=== PATIENT | male | born 1975 | race Caucasian/White ===

== ENCOUNTER 2024-09-09 11:24 | Emergency (ER) | payer SELFPAY ==
[2024-09-09 11:36] VITALS: BP 159/111; PULSE 90; RESP 18; TEMP 36.9; O2SAT 97; BMI 34.6
--- NOTE | 2024-09-09 13:04 | ED.GENADULT ---
HPI - General Adult General Date Seen: 09/09/24 Chief complaint: Dizziness/Vertigo Stated complaint: high blood pressure- dizzy Time Seen by Provider: 09/09/24 12:18 Source: patient Mode of arrival: ambulatory Limitations: no limitations History of Present Illness HPI narrative: Patient is a 49-year-old male presenting to the emergency department for concerns of hypertension an episode of unsteadiness. States he used to be on blood pressure medication but his blood pressure go too low so took him off his hypertensive medication. Has not seen his provider in 2 years he states. Was at the dentist last week and was told he was hypertensive. The noticed today was at work he suddenly felt slightly dizzy and off balance. Did not notice the room spinning or felt like he was going to pass out just states he felt off balance. Also felt like he had some mild shortness of breath. Was not having any chest pain. States his symptoms have since resolved other than some mild headache. Denies fevers, chills, abdominal pain, nausea, vomiting, weakness, numbness. Not aware of any sick contacts. Denies having symptoms like this before. Due other concerns noted. Related Data Home Medications ?Medication ?Instructions ?Recorded ?Confirmed No Known Home Medications 09/09/24 09/09/24 Allergies Allergy/AdvReac Type Severity Reaction Status Date / Time No Known Drug Allergies Allergy Verified 09/09/24 11:31 Review of Systems Status of ROS: Reports: 10 or more systems reviewed and unremarkable except as noted in History and below Exam Narrative: Exam Narrative: Const: Well-nourished, Well-developed, in no distress Eyes: PERRL, no conjunctival injection, and symmetrical lids HENT: Atraumatic external nose and ears. Moist mucous membranes. Neck: Symmetric, trachea midline, No thyromegaly. CVS: RRR, No murmurs or gallops. Peripheral pulses 2+ and equal in all extremities RESP: Unlabored respiratory effort. Clear to auscultation bilaterally. GI: Nontender/Nondistended, No rebound or guarding. MSK:Extremities w/o deformity, Normal Active ROM Skin: Warm, Dry. No rashes or lesions. Neuro: Normal Muscle tone, No focal neurological deficits. Psych: Awake, Alert, & Oriented x3. Appropriate mood and affect. Const: Vital Signs, click to edit/add: Vital Signs - 24 hr 09/09/24 11:36 Temperature 98.4 F Pulse Rate [Pulse Oximeter] 90 Respiratory Rate 18 Blood Pressure [Ri ght Upper Arm] 159/111 H Pulse Oximetry 97 Oxygen Delivery Me thod Room Air Course Vital Signs Vital signs: Initial Vital Signs Temperature 98.4 F 09/09/24 11:36 Temperature Source Temporal Artery Scan 09/09/24 11:36 Pulse Rate 90 09/09/24 11:36 Pulse Rhythm Regular 09/09/24 11:36 Respiratory Rate 18 09/09/24 11:36 Blood Pressure 159/111 H 09/09/24 11:36 Blood Pressure Mean 127 H 09/09/24 11:36 Blood Pressure Position Sitting 09/09/24 11:36 Pulse Oximetry 97 09/09/24 11:36 Oxygen Delivery Method Room Air 09/09/24 11:36 Vital Signs Temperature 98.4 F 09/09/24 11:36 Pulse Rate 90 09/09/24 11:36 Respiratory Rate 18 09/09/24 11:36 Blood Pressure 159/111 H 09/09/24 11:36 Pulse Oximetry 97 09/09/24 11:36 Oxygen Delivery Method Room Air 09/09/24 11:36 Temperature 98.4 F 09/09/24 11:36 Pulse Rate 90 09/09/24 11:36 Respiratory Rate 18 09/09/24 11:36 Blood Pressure 159/111 H 09/09/24 11:36 Pulse Oximetry 97 09/09/24 11:36 Oxygen Delivery Method Room Air 09/09/24 11:36 Medical Decision Making MDM Narrative Medical decision making narrative: Patient is a 49-year-old male presenting to the emergency department for episode of shortness of breath and unsteadiness that has since resolved. He is hypertensive but the set meet criteria for hypertensive emergency at this time. Since she did this shortness of breath shows that since resolved I will do an EKG and troponin to rule out any kind of ACS. Will also check a COVID/flu/RSV along with a CBC and BMP to rule out any kidney disease. I do not believe head imaging is necessary is again his dizziness has resolved and his headache is relatively mild. Under of any concern for pneumonia or pneumothorax at this time. No concern for PE. Patient's lab work all returned showing no concerning abnormalities. EKG shows no concerning findings. Patient continues to be asymptomatic in the emergency department. At this time I do believe he is safe to discharge Lab Data Labs: Lab Results 09/09/24 09/09/24 Range/Units 13:13 13:16 WBC 6.77 (4.50-11.00) K/uL RBC 5.06 (4.30-5.90) m/uL Hgb 15.1 (13.5-17.5) gm/dL Hct 44.9 (37.0-53.0) % MCV 89 (80-100) fL MCH 30 (26-34) pg MCHC 34 (32-36) gm/dL RDW Coeff of Lola 12.2 (11.5-15.5) % Plt Count 231 (140-440) K/uL Neut % (Auto) 53.3 (42.0-72.0) % Lymph % (Auto) 36.5 (20-44) % [place] % (Auto) 8.3 (0.0-11.0) % Eos % (Auto) 1.2 (0.0-7.0) % Baso % (Auto) 0.6 (0.0-3.0) % Neut # (Auto) 3.61 (1.7-7.0) K/uL Lymph # (Auto) 2.47 (0.90-2.90) K/uL [place] # (Auto) 0.60 (0.00-0.90) K/UL Eos # (Auto) 0.08 (0.00-0.50) K/uL Baso # (Auto) 0.04 (0.00-0.30) K/uL Abs Immat Gran (auto) 0.01 (0.00-0.30) K/uL Imm/Tot Granulo (auto) 0.1 % Sodium 136 (135-149) mmol/L Potassium 4.5 (3.6-5.1) mmol/L Chloride 102 (96-114) mmol/L Carbon Dioxide 25 (20-32) mmol/L Anion Gap 9 (7-15) mEq/L BUN 17 (5-24) mg/dL Creatinine 0.8 (0.5-1.5) mg/dL Estimated Creat Clear 114.15 Estimated GFR 110 ml/min Glucose 128 H (60-115) mg/dL Calcium 9.5 (8.4-10.6) mg/dL SARS-CoV-2 (PCR) Negative SARS-CoV-2 (Negative) Influenza Type A (PCR) Negative PCR FLU A (Negative) Influenza Type B (PCR) Negative PCR FLU B (Negative) RSV (PCR) Negative PCR RSV (Negative) POC Troponin I 0.00 L (0.01-0.04) ng/ml ECG Data Attestation: I personally reviewed and interpreted this ECG as follows: Prior ECG tracings: not available for review Interpretation: Normal sinus rhythm with a rate 71 beats per minute, normal intervals, normal axis, no ST or T-wave abnormalities. Discharge Plan Discharge Clinical Impression: Hypertension Qualifiers: Hypertension type: unspecified Qualified Code(s): I10 - Essential (primary) hypertension Patient Disposition: Home, Self-Care Condition: Stable Instructions: Hypertension (ED) Additional Instructions: Follow-up with your primary care provider about your blood pressure. Return to emergency department for new or worsening symptoms Prescriptions: No Action No Known Home Medications Follow Up/Referrals: Provider,Not a Local [Primary Care Provider] - Stand Alone Forms: [employer] Info Instructions
[2024-09-09 13:29] LABS: Basophils Absolute Auto 0.04 K/uL (0.00-0.30); Basophils Percent Auto 0.6 % (0.0-3.0); Eosinophils Absolute Auto 0.08 K/uL (0.00-0.50); Eosinophils Percent Auto 1.2 % (0.0-7.0); Hematocrit 44.9 % (37.0-53.0); Hemoglobin* 15.1 gm/dL (13.5-17.5); Immature Granulocytes Abs Auto 0.01 K/uL (0.00-0.30); Immature Granulocytes Pct Auto 0.1 %; Lymphocytes Absolute Auto 2.47 K/uL (0.90-2.90); Lymphocytes Percent Auto 36.5 % (20-44); Mean Corpuscular HGB Conc 34 gm/dL (32-36); Mean Corpuscular Hemoglobin 30 pg (26-34); Mean Corpuscular Volume 89 fL (80-100); Monocytes Percent Auto 8.3 % (0.0-11.0); Neutrophils Absolute Auto 3.61 K/uL (1.7-7.0); Neutrophils Percent Auto 53.3 % (42.0-72.0); Platelet Count* 231 K/uL (140-440); RDW Coefficient of Variation % 12.2 % (11.5-15.5); Red Blood Count 5.06 m/uL (4.30-5.90); White Blood Count* 6.77 K/uL (4.50-11.00)
[2024-09-09 13:32] LABS: Slide Review Reflex No
[2024-09-09 13:42] LABS: Chloride* 102 mmol/L (96-114); Potassium* 4.5 mmol/L (3.6-5.1); Sodium* 136 mmol/L (135-149)
[2024-09-09 13:45] LABS: Anion Gap 9 mEq/L (7-15); Blood Urea Nitrogen* 17 mg/dL (5-24); Calcium* 9.5 mg/dL (8.4-10.6); Carbon Dioxide* 25 mmol/L (20-32); Creatinine* 0.8 mg/dL (0.5-1.5); Est. Creatinine Clearance* 114.15; Estimated Glomerular Filt Rate 110 ml/min; Glucose* 128 mg/dL (60-115)
--- OUTSIDE RECORDS SUMMARY | 2024-09-09 14:01 | XMS_ITS | Clinical Summary ---
Author Organization [facility] Address [address] [place] [address] Care Team Providers Care Consulting Database Administrator Name Role Phone Angeline Borrego M.D. Primary Care Provider +1- [phone] Source Comments Patient records contain information from all sites at [facility]. For routine questions regarding patient records, call [phone] during business hours, M-F 8:00 AM - 5:00 PM Central Time. Record requests for emergency care only can be directed to [phone] at any time.[facility] Allergies No known active allergies Medications * This document contains information received from the source organization and may not represent a complete record from that organization. tadalafiL (Cialis) 10 mg tablet Take 1 tablet (10 mg total) by mouth daily as needed for erectile dysfunction. 12 tablet 3 4 Active omeprazole (PriLOSEC) [address] capsule TAKE 1 CAPSULE(20 MG) BY MOUTH DAILY 90 capsule 5 Active omeprazole (PriLOSEC) [address] capsule Take 1 capsule (20 mg total) by mouth daily. 30 capsule 2 4 025 Discontinued Active Problems Problem Noted Date Diagnosed Date Other Obesity Due To Excess Calories 09/13/2021 Sprain Lumbar Initial 08/24/2013 Overview (09/19/2023): Sprain of lumbar region L-S and LB mm strain @ [employer] Encounters Date Type Department Care Team Description 08/31/2024 Refill Department of Family Medicine, [facility], in [address] [phone] Kaley Garncia, CNC TECHNICIAN, C.N.P. Med Refill 08/08/2024 Results Follow-Up Department of Family Medicine, [facility], in [address] [phone] Angeline Borrego M.D. Cologuard - Sent Out Lab from Last 3 Months Immunizations Immunization Administration Dates Next Due HepB Adult 02/18/2015 HepB Adult (HEPLISAV-B) 09/01/2023 HepB, Unspecified 11/20/2018 MMR 11/20/2018,02/18/2015 SARS-COV-2 (COVID-19) - PFIZ ER (Discontinued)(12 years or older) 11/18/2020,10/28/2020 Tdap 11/20/2018,02/18/2015 influenza vaccine quad (FLUZ ONE/FLUARIX) (6 months and older)(PF) 02/18/2015 Family History Medical History Relation Name Comments Diabetes mellitus type II Brother Diabetes type II Sister Relation Name Status Comments Brother Sister Social History Tobacco Use Types Packs/Day Years Used Date Smoking Tobacco: Former Smokeless Tobacco: Never Tobacco Cessation:Counseling Given: Not Answered PHQ-2 Answer Date Recorded PHQ-2 Score 0 09/01/2023 Nutrition Answer Date Recorded Nutrition: EVOO Fat Source Unknown 07/17 Nutrition: Servings of Fruits/Vegetables per Day Not on file 07/17/2020 Dental Answer Date Recorded Dental: Regular Dentist Unknown 07/17/19 21 Sex and Gender Information Value Date Recorded Sex Assigned at Not on file Legal Sex 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 Gender Identity Not on file Sexual Orientation Not on file Last Filed Vital Signs Vital Sign Reading Time Taken Comments Blood Pressure 123/86 09/01/2023 9:03 AM CDT Pulse 78 09/01/2023 9:03 AM CDT Temperature 36.7 C (98 F) 09/01/2023 9:03 AM CDT Respiratory Rate 18 12/05/2013 5:03 PM CDT Oxygen Saturation 98% 09/01/2023 9:03 AM CDT Inhaled Oxygen Concentration - - Weight 101 kg (223 lb 1.7 oz) 09/01/2023 9:03 AM CDT Height 168 cm (5' 6.14) 07/16/2020 8:02 AM GENERAL LITHOGRAPHIC WORKER Body Mass Index 35.86 07/16/2020 8:02 AM GENERAL LITHOGRAPHIC WORKER Plan of Treatment Upcoming Encounters Date Type Department Care Team (Latest Contact Info) Description 11/14/2024 1:40 PM CDT Comprehensive Visit Department of Family Medicine, [facility], in [address] [phone] Angeline Borrego M.D. [address] [place] [phone] Discharge Disposition: Home or Self Care Health Maintenance Due Date Last Done Comments CT Colonography 1977 Colonoscopy 1977 FIT 1977 COVID-19 Vaccine ( season) 2024 09/13/2021, 11/18/2020, 10/28/2020 Influenza Vaccine (#1) 2024 02/18/2015 Depression Screening (Annual PHQ-2) 05/29/2024 Fasting Glucose for Diabetes Screening 08/31/2026 09/01/2023, 09/13/2021, 07/16/2020, Additional history exists Cologuard 07/28/2027 07/27/2024 Colorectal Cancer Screening 07/28/2027 Lipid (Cholesterol) Screening 08/31/2028 09/01/2023, 09/17/2021, 09/13/2021, Additional history exists DTaP,Tdap,and Td Vaccines (3 - Td or Tdap) 11/20/2028 11/20/2018, 02/18/2015 HIV Screening Completed 02/15/2022 Hepatitis C Screening Completed 02/15/2022 Hepatitis B Vaccines Completed 09/01/2023, 11/20/2018, 02/18/2015 IPV Vaccines Aged Out No longer eligi ble based on patient's age to complete this topic Pneumococcal vaccine (0-49 years) Aged Out No longer eligible based on patient's age to complete this topic Procedures Procedure Name Priority Date/Time Associated Diagnosis Comments COLOGUARD Routine 07/27/2024 4:30 PM GENERAL LITHOGRAPHIC WORKER Screening Cancer Colon COMPREHENSIVE METABOLIC PANEL, S/P Routine 09/01/2023 10:48 AM CDT Well Adult Examination Normal LIPID PANEL, S Routine 09/01/2023 10:48 AM CDT Screening Lipid HCV AB SCRN W/REFLEX TO HCV PCR, S Routine 02/15/2022 9:53 AM CDT Balanitis Xerotica Obliterans Lesion Skin Penile HIV-1/-2 AG AND AB SCREEN, PLASMA Routine 02/15/2022 9:53 AM CDT Balanitis Xerotica Obliterans Lesion Skin Penile from Last 3 Months or Most Recently Relevant to Health Maintenance Results * Cologuard - Sent Out Lab (07/27/2024 4:30 PM GENERAL LITHOGRAPHIC WORKER) Result Negative Negative 08/08/2024 4:38 AM CDT EX[facility] Comment: NEGATIVE TEST RESULT. A negative Cologuard result indicates a low likelihood that a colorectal cancer (CRC) or advanced adenoma (adenomatous polyps with more advanced pre-malignant features) is present. The chance that a person with a negative Cologuard test has a colorectal cancer is less than 1 in 1500 (negative predictive value >99.9%) or has an advanced adenoma is less than 5.3% (negative predictive value 94.7%). These data are based on a prospective cross-sectional study of 10,000 individuals at average risk for colorectal cancer who were screened with both Cologuard and colonoscopy. (Holli Barahona al, N Engl J Med 2014;370(14):2641-5467) The normal value (reference range) for this assay is negative. COLOGUARD RE-SCREENING RECOMMENDATION: Periodic colorectal cancer screening is an important part of preventive healthcare for asymptomatic individuals at average risk for colorectal cancer. Following a negative Cologuard result, the [employer] [place] [employer] Society and U.S. Multi-Society Task Force screening guidelines recommend a Cologuard re-screening interval of 3 years. References: [employer] Guideline for Colorectal Cancer Screening: https://www.cancer.org/cancer/uzwnr-rnxuxw-sdeaya/detection- diagnosis-staging/acs-recommendations.html.; Darwin DK, Suman CR, Hero McconnellK, Colorectal Cancer Screening: Recommendations for Physicians and Patients from the U.S. Multi-Society Task Force on Colorectal Cancer Screening , Am J Gastroenterology 2017; 112:3556-4705. TEST DESCRIPTION: Composite algorithmic analysis of stool DNA-biomarkers with hemoglobin immunoassay. Quantitative values of individual biomarkers are not reportable and are not associated with individual biomarker result reference ranges. Cologuard is intended for colorectal cancer screening of adults of either sex, 45 years or older, who are at average-risk for colorectal cancer (CRC). Cologuard has been approved for use by the U.S. FDA. The performance of Cologuard was established in a cross sectional study of average-risk adults aged 50-84. Cologuard performance in patients ages 45 to 49 years was estimated by sub-group analysis of near-age groups. Colonoscopies performed for a positive result may find as the most clinically significant lesion: colorectal cancer [4.0%], advanced adenoma (including sessile serrated polyps greater than or equal to 1cm diameter) [20%] or non- advanced adenoma [31%]; or no colorectal neoplasia [45%]. These estimates are derived from a prospective cross-sectional screening study of 10,000 individuals at average risk for colorectal cancer who were screened with both Cologuard and colonoscopy. (Holli Barahona al, N Engl J Med 2014;370(14):1671-3706.) Cologuard may produce a false negative or false positive result (no colorectal cancer or precancerous polyp present at colonoscopy follow up). A negative Cologuard test result does not guarantee the absence of CRC or advanced adenoma (pre-cancer). The current Cologuard screening interval is every 3 years. ([employer] and U.S. Multi-Society Task Force). Cologuard performance data in a 10,000 patient pivotal study using colonoscopy as the reference method can be accessed at the following location: www.Sedicii.KeepTrax/results. Additional description of the Cologuard test process, warnings and precautions can be found at www.[employer].KeepTrax. Stool (Stool) 07/27/2024 4:3 0 PM GENERAL LITHOGRAPHIC WORKER 07/30/2024 9:48 AM GENERAL LITHOGRAPHIC WORKER Angeline Borrego M.D. LAB BODY FLUIDS AND STOOLS ORDERABLES Final Result [employer] [employer] [address] [place] [address] [facility] [address], [address] [place] [address] * (ABNORMAL) Lipid Panel (09/01/2023 10:48 AM CDT) Triglycerides 219(H) mg/dL 09/01/2023 11:13 AM CDT CNFL Comment: ----REFERENCE VALUE---- Normal: <150 mg/dL Borderline High: 150-199 mg/dL High: 200-499 mg/dL Very High: > or =500 mg/dL Cholesterol, Total 148 mg/dL 2023 11:13 AM CDT CNFL Comment: ----REFERENCE VALUE---- Desirable: < 200 mg/dL Borderline High: 200 - 239 mg/dL High: > or = 240 mg/dL Cholesterol, LDL, Calculated 76 mg/dL 09/01/2023 11:13 AM CDT CNFL Comment: ----REFERENCE VALUE---- Desirable: <100 mg/dL Above Desirable: 100-129 mg/dL Borderline High: 130-159 mg/dL High: 160-189 mg/dL Very High: >=190 mg/dL ----ADDITIONAL INFORMATION---- LDL cholesterol calculated using the Ennis/NIH equation. Cholesterol, HDL 36(L) >=40 mg/dL 09/01/19 11:13 AM CDT CNFL Cholesterol, Non-HDL, Calculated 112 mg/dL 09/01/2023 11:13 AM CDT CN[facility] Comment: ----REFERENCE VALUE---- Desirable: <130 mg/dL Above Desirable: 130-159 mg/dL Borderline High: 160-189 mg/dL High: 190-219 mg/dL Very High: > or =220 mg/dL Fasting (8 HR or more) Yes 09/01/2023 10:48 AM CDT CNFL Blood (Blood, Venous) 09/01/2023 10:48 AM CDT 09/01/2023 10:48 AM CDT us Kaley Garnica APRN, C.N.P. LAB BLOOD ADD-ON Vashti l Result [facility] [address] [place] [id number], [facility] CNFL [facility] in [place] [id number] * (ABNORMAL) Comprehensive Metabolic Panel (09/01/2023 10:48 AM CDT) Potassium, P 4.4 3.6 - 5.2 mmol/L 09/01/2023 11:13 AM CDT CNFL Sodium, P 138 135 - 145 mmol/L 09/01/2023 11:13 AM CDT CNFL Chloride, P 104 98 - 107 mmol/L 09/01/2023 11:13 AM CDT CNFL Bicarbonate, P 26 22 - 29 mmol/L 09/01/2023 11:13 AM CDT CNFL Anion Gap, P 8 7 - 15 09/01/2023 11:13 AM CDT CNFL BUN (Blood Urea Nitrogen), P 18 8 - 24 mg/dL 09/01/2023 11:13 AM CDT CNFL Creatinine 0.87 0.74 - 1.35 mg/dL 09/01/2023 11:13 AM CDT CNFL Estimated GFR (eGFR) >90 >=60 mL/min/BS A 09/01/2023 11:13 AM CDT CNFL Comment: Estimated GFR calculated using the 2020 CKD_EPI creatinine equation. Calcium, Total, P 9.3 8.6 - 10.0 mg/dL 09/01/2023 11:13 AM CDT CNFL Glucose, P 88 70 - 140 mg/dL 09/01/2023 11:13 AM CDT CNFL Protein, Total, P 7.1 6.3 - 7.9 g/dL 09/01/2023 11:13 AM CDT CNFL Albumin, P 4.1 3.5 - 5.0 g/dL 09/01/2023 11:13 AM CDT CNFL Aspartate Aminotransferase (AST), P 36 8 - 48 U/L 09/01/2023 11:13 AM CDT CNFL Alkaline Phosphatase, P 140(H) 40 - 129 U/L 09/01/2023 11:13 AM CDT CNFL Alanine Aminotransferase (ALT), P 76(H) 7 - 55 U/L 09/01/2023 11:13 AM CDT CNFL Bilirubin, Total, P 0.4 0.0 - 1.2 mg/dL 09/01/2023 11:13 AM CDT CNFL Blood (Blood, Venous) 09/01/2023 10:48 AM CDT 09/01/2023 10:48 AM CDT us Kaley Garnica APRN, C.N.P. LAB BLOOD ADD-ON Vashti l Result Performing Organization Address City/State/[facility] Co de Phone Number [facility] [address] [place] [id number], [facility] CNFL [facility] in [address] [address] * HIV-1/-2 Ag and Ab Screen, Plasma (02/15/2022 9:53 AM CDT) HIV Ag/Ab Screen, P Negative Negative 02/16/2022 9:58 AM CDT E[facility] Comment: Negative result does not rule out HIV infection. If exposure to HIV infection occurred <14 days ago, contact the laboratory to request addition of HIV-1 RNA detection / quantification test. HIV-1 p24 Ag Screen, P Negative Negative 02/16/2022 9:58 AM CDT ECLR Comment: Negative result does not rule out HIV infection. If exposure to HIV infection occurred <14 days ago, contact the laboratory to request addition of HIV-1 RNA detection / quantification test. HIV-1 Ab Screen, P Negative Negative 2021 9:58 AM CDT ECLR Comment: Negative result does not rule out HIV infection. If exposure to HIV infection occurred <14 days ago, contact the laboratory to request addition of HIV-1 RNA detection / quantification test. HIV-2 Ab Screen, P Negative Negative 2021 9:58 AM CDT ECLR Comment: Negative result does not rule out HIV infection. If exposure to HIV infection occurred <14 days ago, contact the laboratory to request addition of HIV-1 RNA detection / quantification test. Blood (Blood, Venous) 02/15/2022 9:53 AM CDT 02/15/2022 2:45 PM CDT Bijal Paula APRN, C.N.P. , D.N.P. LAB MICROBIOLOGY - BLOOD ORDERABLES Final Result [facility] [address] [place] [address], [facility] ECLR [facility] [place] [address] * HCV Ab Scrn w/Reflex to HCV PCR, Serum (02/15/2022 9:53 AM CDT) HCV Ab Screen, S Negative Negative 02/16/20 4:34 PM CDT ECLR Comment: Biotin has been identified by the control systems developer as a potential interfering substance. Higher concentrations of biotin may be found in multivitamins, hair/nail supplements, and workout supplements. If the result does not match clinical observations, repeat testing after patient refrains from the use of supplements for at least 12 hours. Blood (Blood, Venous) 02/15/2022 9:53 AM CDT 02/15/2022 2:46 PM CDT Narrative [facility] - 02/15/2022 4:34 PM CDT Specimen Information: Specimen ID: [id number] Specimen Type: Blood Specimen Collection Start Date: 02/15/2022 9:53 AM Specimen Received Date: 02/15/2022 2:46 PM Specimen ID: [id number] Specimen Type: Blood Specimen Collection Start Date: 02/15/2022 9:53 AM Specimen Received Date: 02/15/2022 2:46 PM Bijal Paula APRN, C.N.P. , D.N.P. LAB MICROBIOLOGY - BLOOD ORDERABLES Final Result [facility] [address] [place] [address], [place] ECLR [facility] in [place] [address] [place] [address] from Last 3 Months or Most Recently Relevant to Health Maintenance Insurance [facility] Care Teams Consulting Database Administrator Relationship Specialty Start Date End Date Angeline Borrego M.D. [address] [place] [phone] PCP - General 04/13/22
--- OUTSIDE RECORDS SUMMARY | 2024-09-09 14:01 | XMS_ITS | Encounter Summary ---
Author Organization [facility] Address [address] [place] [address] Care Team Providers Care Environmental Director Name Role Phone Angeline Borrego M.D. Primary Care Provider +1- [phone] Reason for Visit * Reason Comments Med Refill Encounter Details Date Type Department Care Team (Late Contact Info) Description 08/31/2024 Refill Department of Family Medicine, [facility], in [address] [phone] Kaley Garnica, LONE LEAD LINEMAN, C.N.P. 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 [address] [place] [phone] Discharge Disposition: Home or Self Care documented as of this encounter Visit Diagnoses Not on filedocumented in this encounter Care Teams Environmental Director Relationship Specialty Start Date End Date Angeline Borrego M.D. [address] [place] [phone] PCP - General 04/13/22 documented as of this encounter
--- OUTSIDE RECORDS SUMMARY | 2024-09-09 14:01 | XMS_ITS | Clinical Summary ---
Author Organization [place] Address [address] [facility] [place] [address] Care Team Providers Care Otolaryngology Surgeon Name Role Phone No Ref-Primary, Physician Primary Care Provider No Ref-Primary, Physician Unavailable [facility] [place] Unavail able Allergies Active Allergy Reactions Criticality Noted Date Comments No Known Allergies 12/07/2001 Medications lisinopril (ZESTRIL) 5 MG tabletIndicatio ns:Elevated blood pressure reading TAKE 1 TABLET(5 MG) BY MOUTH DAILY 90 tablet Active Additional Information Patient not taking.Reported on 12/02/2022 Active Problems Problem Noted Date Diagnosed Date Class 1 obesity due to exces s calories without serious comorbidity with body mass index (BMI) of 33.0 to 33.9 in adult 09/13/2021 ACP (advance care planning) 09/13/2021 Other atopic dermatitis 08/21/2017 Other male erectile dysfunction 08/21/2017 Sprain of lumbar region 12/06/2001 Overview (12/07/2001): L-S and LB mm strain @ [facility] Immunizations Name Administration Dates Next Due COVID-19 Monovalent 12+ (Pfizer 2021) 09/13/2021 HepB, Unspecified 11/20/2018 Hepatitis B, Adult (Energix- B/Recombivax HB) 02/18/2015,02/18/2015 Influenza Vaccine >6 months,quad, PF 02/18/2015, 02/18/2015 MMR (MMRII) 11/20/2018,02/18/2015,02/18/2015 TDAP (Adacel,Boostrix) 11/20/2018,02/18/2015 TDAP Vaccine (Adacel) 02/18/2015 Family History Medical History Relation Comments Diabetes Brother Prostate Cancer Father Colon Cancer No family hx of Relation Status Comments Brother Alive Father Alive Mother Alive Social History Tobacco Use Types Packs/Day Years Used Date Smoking Tobacco: Former Cigarettes Q uit: 08/25/2021 Smokeless Tobacco: Never Comments:occasionally Alcohol Use Standard Drinks/Week Comments Yes 0 (1 standard drink = 0.6 oz pur e alcohol) one drink per week Social Connection and Isolat ion Panel [NHANES] Answer Date Recorded In a typical week, how many times do you talk on the phone with family, friends, or neighbors? Twice a week 09/13/2021 How often do you get togethe r with friends or relatives? More than three times a week 09/13/2021 How often do you attend chur or jehovah's witness services? More than 4 times per year 09/13/2021 Do you belong to any clubs o r organizations such as shinto groups, unions, fraternal or athletic groups, or school groups? Yes 09/13/2021 Attends Club or Organization Meetings Not on cristina e 09/13/2021 Are you , , di vorced, , never , or living with a partner? 09/13/2021 AUDIT-C Answer Date Recorded Q1: How often do you have a drink containing alc ohol? Monthly or less 09/13/2021 Q2: How many drinks containi ng alcohol do you have on a typical day when you are drinking? 1 or 2 09/13/2021 Q3: How often do you have si x or more drinks on one occasion? Less than monthly 09/13/2021 Overall Financial Resource Strain (CARDIA) Answe r Date Recorded How hard is it for you to pa y for the very basics like food, housing, medical care, and heating? Not hard at all 09/13/2021 PHQ-2 Answer Date Recorded PHQ-2 Score 0 12/02/2022 [facility] - Occupational Stress Questionnaire Answer Date Recorded Do you feel stress - tense, restless, nervous, or anxious, or unable to sleep at night because your mind is troubled all the time - these days? Only a little 09/13/2021 Exercise Vital Sign Answer Date Recorde d On average, how many days pe r week do you engage in moderate to strenuous exercise (like a brisk walk)? 5 days 09/13/2021 On average, how many minutes do you engage in exercise at this level? 40 min 09/13/2021 Hunger Vital Sign Answer Date Recorded Within the past 12 months, y ou worried that your food would run out before you got the money to buy more. Never true Within the past 12 months, t he food you bought just didn't last and you didn't have money to get more. Patient declined PRAPARE - Transportation Answer Date Re corded In the past 12 months, has l ack of transportation kept you from medical appointments or from getting medications? Patient declined 09/13/2021 In the past 12 months, has l ack of transportation kept you from meetings, work, or from getting things needed for daily living? No 09/13/2021 Housing Stability Vital Sign Answer Power e Recorded In the last 12 months, was t here a time when you were not able to pay the mortgage or rent on time? No 09/13/2021 In the last 12 months, how many places have you lived? 1 09/13/2021 In the last 12 months, was t here a time when you did not have a steady place to sleep or slept in a residential (including now)? 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 Gender Identity Not on file Sexual Orientation Not on file Last Filed Vital Signs Vital Sign Reading Time Taken Comments Blood Pressure 133/84 12/02/2022 1:16 PM CDT Pulse 80 12/02/2022 1:16 PM CDT Temperature 37 C (98.6 F) 12/02/2022 1:16 PM CDT Respiratory Rate 19 12/02/2022 1:16 PM CDT Oxygen Saturation 95% 12/02/2022 1:16 PM CDT Inhaled Oxygen Concentration - - Weight 99.8 kg (220 lb) 12/02/2022 1:16 PM CDT Height 172.7 cm (5' 8) 12/02/2022 1:16 PM CDT Body Mass Index 33.45 12/02/2022 1:16 PM CDT Plan of Treatment Health Maintenance Due Date Last Done Comments ADVANCE CARE PLANNING 1977 CT COLONOGRAPHY 1977 FIT 1977 FLEX SIG 1977 sDNA (Cologuard) 1977 COLONOSCOPY 08/18/1987 COLORECTAL CANCER SCREENING 08/18/1987 HEPATITIS B IMMUNIZATION (3 of 3 - 19+ 3-dose series) 01/15/2019 11/20/2018, 02/18/2015, 02/18/2015 ANNUAL REVIEW OF HM ORDERS 09/13/2022 09/13/2021, YEARLY PREVENTIVE VISIT 09/13/2022 09/14/19, 06/28/2019, 06/28/2019 COVID-19 Vaccine ( season) 2024 09/13/2021 INFLUENZA VACCINE (#1) 2024 , 02/18/2015, 02/18/2015 PHQ-2 (once per calendar year) 2024 12/02/2022, 09/13/2021, 06/28/2019, Additional history exists DIABETES SCREENING 09/13/2024 09/13/2021, 06/14/2019 LIPID 09/17/2026 09/17/2021, 09/13/2021 ZOSTER IMMUNIZATION (1 of 2) 08/18/2027 DTAP/TDAP/TD IMMUNIZATION (4 - Td or Tdap) 11/20/2028 11/20/2018, 02/18/2015, 02/18/2015 HEPATITIS C SCREENING Completed 09/13/2021 HIV SCREENING Completed 09/13/2021, 05/31 (Declined) HPV IMMUNIZATION Aged Out No longer e ligible based on patient's age to complete this topic MENINGITIS IMMUNIZATION Aged Out No l onger eligible based on patient's age to complete this topic Pneumococcal Vaccine: Pediatrics (0 to 5 Years) and At-Risk Patients (6 to 49 Years) Aged Out No longer eligible based on patient's age to complete this topic Procedures Procedure Name Priority Date/Time Associated Diagnosis Comments LIPID REFLEX TO DIRECT LDL PANEL Routine 09/17/2021 11:01 AM CDT Hypertriglyceridemia BASIC METABOLIC PANEL Add-On 09/13/2021 3:15 PM CDT Screening for diabetes mellitus Class 1 obesity due to excess calories without serious comorbidity with body mass index (BMI) of 33.0 to 33.9 in adult HIV ANTIGEN ANTIBODY COMBO Routine 09/13/2021 3:15 PM CDT Screening for HIV (human immunodeficiency virus) HEPATITIS C SCREEN REFLEX TO HCV RNA QUANT AND GENOTYPE Routine 09/13/2021 3:15 PM CDT Need for hepatitis C screening test from Last 3 Months or Most Recently Relevant to Health Maintenance Results * (ABNORMAL) Lipid panel reflex to direct LDL Fasting (09/17/2021 11:01 AM CDT) Cholesterol 161 <200 mg/dL 09/18/2021 10:58 AM CDT [facility] Triglycerides 176(H) <150 mg/dL 09/18/2021 10:58 AM CDT [facility] Direct Measure HDL 35(L) >=40 mg/dL 09/18/2021 10:58 AM CDT [facility] LDL Cholesterol Calculated 91 <=100 mg/dL 09/18/2021 10:58 AM CDT [facility] Non HDL Cholesterol 126 <130 mg/dL 09/18/2021 10:58 AM CDT [facility] Patient Fasting > 8hrs? Yes 09/18/2021 10:58 AM CDT [facility] Blood STRUCTURE OF RIGHT UPPER LIMB / Unknown Venipuncture / Unknown 09/17/2021 11:01 AM CDT 09/17/2021 11:01 AM CDT Narrative [facility] - 09/18/2021 10:58 AM CDT Cholesterol Desirable: <200 mg/dL Triglycerides Normal: Less than 150 mg/dL Borderline High: 150-199 mg/dL High: 200-499 mg/dL Very High: Greater than or equal to 500 mg/dL Direct Measure HDL Female: Greater than or equal to 50 mg/dL Male: Greater than or equal to 40 mg/dL LDL Cholesterol Desirable: <100mg/dL Above Desirable: 100-129 mg/dL Borderline High: 130-159 mg/dL High: 160-189 mg/dL Very High: >= 190 mg/dL Non HDL Cholesterol Desirable: 130 mg/dL Above Desirable: 130-159 mg/dL Borderline High: 160-189 mg/dL High: 190-219 mg/dL Very High: Greater than or equal to 220 mg/dL Danuta Bender APRN ORACLE IAM CONSULTANT LAB - BLOOD ORDERABLES F inal Result [facility] [address] Lab (no room number, 1st floor of clinic) [place] [address], [facility] [phone] * HIV Antigen Antibody Combo (09/13/2021 3:15 PM CDT) HIV Antigen Antibody Combo Nonreactive Nonreactive 09/15/2021 12:56 PM CDT SPECIALTY CORE/PROT/EN DO Comment:HIV-1 p24 Ag & HIV-1 /HIV-2 Ab Not Detected Blood STRUCTURE OF RIGHT UPPER LIMB / Unknown Venipuncture / Unknown 09/13/2021 3:15 PM CDT 09/13/2021 3:15 PM CDT Danuta Bender APRN, CNP LAB - BLOOD ORDERABLES F inal Result [facility] CORE/PROT/ENDO [facility] Specialty Core/Prot/Endo [address] [facility] [address] Building, [address] [place] [address], [facility] [phone] * Hepatitis C Screen Reflex to HCV RNA Quant and Genotype (09/13/2021 3:15 PM CDT) Hepatitis C Antibody Nonreactive Nonreactive 09/15/2021 12:56 PM CDT SPECIALTY CORE/PROT/EN DO Blood STRUCTURE OF RIGHT UPPER LIMB / Unknown Venipuncture / Unknown 09/13/2021 3:15 PM CDT 09/13/2021 3:15 PM CDT Narrative SPECIALTY CORE/PROT/ENDO - 09/15/2021 12:56 PM CDT Assay performance characteristics have not been established for newborns, infants, and children. Danuta Bender APRN ORACLE IAM CONSULTANT LAB - BLOOD ORDERABLES F inal Result SPECIALTY CORE/PROT/ENDO Specialty Core/Prot/Endo [address] [facility] [address] [facility], Room [address] [place] [address] * (ABNORMAL) Basic metabolic panel (Ca, Cl, CO2, Creat, Gluc, K, Na, BUN) (09/13/2021 3:15 PM CDT) Sodium 136 133 - 144 mmol/L 09/14/2021 2:01 PM CDT [facility] Potassium 4.9 3.4 - 5.3 mmol/L 09/14/2021 2:01 PM CDT [facility] Chloride 105 94 - 109 mmol/L 09/14/2021 2:01 PM CDT [facility] Carbon Dioxide (CO2) 26 20 - 32 mmol/L 09/14/2021 2:01 PM CDT [facility] Anion Gap 5 3 - 14 mmol/L 09/14/2021 2:01 PM CDT [facility] Urea Nitrogen 14 7 - 30 mg/dL 09/14/2021 2:01 PM CDT [facility] Creatinine 0.92 0.66 - 1.25 mg/dL 09/14/2021 2:01 PM CDT [facility] Calcium 9.2 8.5 - 10.1 mg/dL 09/14/2021 2:01 PM CDT [facility] Glucose 105(H) 70 - 99 mg/dL 09/14/2021 2:01 PM CDT [facility] GFR Estimate >90 >60 mL/min/1.7 3m2 09/14/2021 2:01 PM CDT [facility] Comment:Effective April 292020 eGFRcr in adults is calculated using the 2020 CKD-EPI creatinine equation which includes age and gender (Trinity et al., NEJM, DOI: 10.1056/KWDApx8196808) Blood STRUCTURE OF RIGHT UPPER LIMB / Unknown Venipuncture / Unknown 09/13/2021 3:15 PM CDT 09/13/2021 3:15 PM CDT us Danuta Bender APRN ORACLE IAM CONSULTANT LAB - BLOOD ORDERABLES F inal Result [facility] [address] Lab (no room number, 1st floor of clinic) [place] [address], [facility] [phone] from Last 3 Months or Most Recently Relevant to Health Maintenance Insurance BC OUT OF [facility]LY [facility] OTHER on file Care Teams Otolaryngology Surgeon Relationship Specialty Start Date End Date No Ref-Primary, Physician PCP - General 09/01/21 No Ref-Primary, Physician 09/01/[address] [address] Assigned PCP 06/22/23
--- OUTSIDE RECORDS SUMMARY | 2024-09-09 14:02 | XMS_ITS | Encounter Summary ---
Author Organization [place] Address [address] [facility] [place] [address] Care Team Providers Care Tobacco Drier Operator Name Role Phone No Ref-Primary, Physician Primary Care Provider No Ref-Primary, Physician Unavailable [phone] Coming August Margot PEARCE Unavailable [phone] Danuta Bender APRN RUG SHAMPOOER Unavailable Danuta Bender APRN RUG SHAMPOOER Unavailable [facility] Unavail able Encounter Details Date Type Department Care Team (Late st Contact Info) Description 09/14/2021 Documentation Only INTERFACED REPORT Unknown, Provider Social History Tobacco Use Types Packs/Day Years Used Date Smoking Tobacco: Former Cigarettes Q uit: 08/25/2021 Smokeless Tobacco: Never Alcohol Use Standard Drinks/Week Comments Yes 0 [...] week 09/13/2021 How often do you attend [facility] or pentecostal services? More than 4 times per year 09/13/2021 Do you belong to any clubs o r organizations such as latter day groups, unions, fraternal or athletic groups, or [...] PHQ-2 Answer Date Recorded PHQ-2 Score 0 09/13/2021 [facility] - Occupational Stress Questionnaire Answer Date Recorded [...] place to sleep or slept in a long term (including now)? 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 No / Unsure 09/17/2021 10:55 AM CDT documented as of this encounter Plan of Treatment Not on file documented as of this encounter Visit Diagnoses Not on filedocumented in this encounter Additional Health Concerns Assessment Noted Time PHQ-9 Depression Total Score: 9 06/14/19 20 3:22 PM TOP STITCHER documented as of this encounter Care Teams Tobacco Drier Operator Relationship Specialty Start Date End Date No Ref-Primary, Physician PCP - General 09/01/21 No Ref-Primary, Physician 09/01/21 Rosario Zabala Rosana MD Marg[place] [address] [place] [address] Assigned PCP 06/16/19 02/25/22 Danuta Bender APRN RUG SHAMPOOER [address] [place] [phone] Assigned PCP 08/19/21 02/25/22 Danuta Bender APRN RUG SHAMPOOER [address] [place] [phone] Assigned PCP 02/26/22 06/21/23 Clinic - [facility] [address] [place] [address] Assigned PCP 06/22/23 documented as of this encounter
--- OUTSIDE RECORDS SUMMARY | 2024-09-09 14:02 | XMS_ITS | Encounter Summary ---
Author Organization [facility] Address [address] [place] [address] Care Team Providers Care Neon Tube Bender Name Role Phone Angeline Borrego M.D. Primary Care Provider [phone] Encounter Details Date Type Department Care Team ( Contact Info) Description 08/08/2024 Results Follow-Up Department of Family Medicine, [facility], in [address] [phone] Angeline Borrego M.D. 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 [address] [place] [phone] Discharge Disposition: Home or Self Care documented as of this encounter Visit Diagnoses Not on filedocumented in this encounter Care Teams Neon Tube Bender Relationship Specialty Start Date End Date Angeline Borrego M.D. [address] [place] [phone] PCP - General 04/13/22 documented as of this encounter
[2024-09-09 14:48] LABS: PCR FLU A Negative PCR FLU A (Negative); PCR FLU B Negative PCR FLU B (Negative); PCR RSV Negative PCR RSV (Negative); SARS PCR* Negative SARS-CoV-2 (Negative)
== END 2024-09-09 15:10 | disposition home or self-care (01) ==
PROVIDERS: Emergency Provider Student in an Organized Health Care Education/Training Program
DX: R51.9 Headache, unspecified (principal); I10 Essential (primary) hypertension
CPT/HCPCS: 36415; 80048; 84484; 85025; 87631; 93005; 99283; 99284